=== PATIENT | female | born 1945 | race Caucasian/White ===

== ENCOUNTER → 2016-10-15 | Outpatient (CLI) | payer MEDICARE, BC ==
[2012-01-02 12:58] VITALS: BP 164/78
[~2016-10-15] MED LIST: ALPRAZOLAM0.25 MG PO; CITALOPRAM20 MG PO; LEVOTHYROXINE; PREMARIN0.3 MG; SIMVASTATIN5 MG PO
== END ==
LOC: MAMMO 13:53
DX: R92.8 Other abnormal and inconclusive findings on diagnostic imaging of breast (principal)

== ENCOUNTER → 2017-05-13 | Outpatient (CLI) | payer MEDICARE, BC ==
[2012-01-02 12:58] VITALS: BP 164/78
== END ==
LOC: MAMMO 08:29 → RAD 08:30
DX: Z12.31 Encounter for screening mammogram for malignant neoplasm of breast (principal)

== ENCOUNTER → 2017-08-03 | Outpatient (CLI) | payer MEDICARE, BC ==
[2012-01-02 12:58] VITALS: BP 164/78
== END ==
LOC: RAD 07-07 14:30 → MAMMO 07-07 14:30 → RAD 13:40
DX: Z13.820 Encounter for screening for osteoporosis (principal)

== ENCOUNTER → 2018-07-19 | Outpatient (CLI) | payer MEDICARE, BC ==
[2012-01-02 12:58] VITALS: BP 164/78
== END ==
LOC: MAMMO 11:16
DX: Z12.31 Encounter for screening mammogram for malignant neoplasm of breast (principal)

== ENCOUNTER 2021-03-14 09:16 | Emergency (ER) | payer MEDICARE, BC ==
[2021-03-14] MEDS ORDERED: PANTOPRAZOLE SO40 MG PO (09:30)
[2021-03-14] MEDS ORDERED: ALPRAZOLAM0.5 MG PO (09:30)
[2021-03-14] MEDS ORDERED: SINGULAIR 110 MG/TAB PO (09:30)
[2021-03-14] MEDS ORDERED: ESTRADIOL0.5 M1 PO (09:30)
[2021-03-14] MEDS ORDERED: LEVOTHYROXINE125 MCG PO (09:30)
[2021-03-14] MEDS ORDERED: PREDNISONE20 M1 PO (10:31)
[2021-03-14] MEDS ORDERED: MORGIDOX 1X100100 MG PO (10:31)
[2021-03-14 10:46] VITALS: BP 154/76
[2021-03-14 11:46] LABS: URINE APPEARANCE CLEAR; URINE BILIRUBIN NEGATIVE (NEGATIVE); URINE BLOOD TRACE (NEGATIVE); URINE COLOR YELLOW; URINE GLUCOSE NEGATIVE (NEGATIVE); URINE KETONE NEGATIVE (NEGATIVE); URINE LEUKOCYTE ESTERASE NEGATIVE (NEGATIVE); URINE NITRATE NEGATIVE (NEGATIVE); URINE PROTEIN(semi-quant) 3+ (NEGATIVE); URINE UROBILINOGEN NORMAL (NORMAL); URINE WBC 0-1 /hpf (0-3)
== END 2021-03-14 10:46 | disposition home or self-care (01) ==
LOC: ED 09:16
PROVIDERS: Physician Assistant
DX: J40 Bronchitis, not specified as acute or chronic (principal); J32.9 Chronic sinusitis, unspecified; J44.9 Chronic obstructive pulmonary disease, unspecified; E03.9 Hypothyroidism, unspecified; K21.9 Gastro-esophageal reflux disease without esophagitis; Z20.822 Contact with and (suspected) exposure to COVID-19; Z79.890 Hormone replacement therapy; Z79.899 Other long term (current) drug therapy

== ENCOUNTER → 2021-06-02 | Outpatient (CLI) | payer MEDICARE, BC ==
[~2021-06-02] MED LIST changes: +ALPRAZOLAM0.5 MG PO; +ESTRADIOL0.5 M1 PO; +LEVOTHYROXINE125 MCG PO; +MORGIDOX 1X100100 MG PO; +PANTOPRAZOLE SO40 MG PO; +PREDNISONE20 M1 PO; +SINGULAIR 110 MG/TAB PO
[2021-06-02 12:48] LABS: POTASSIUM 4.2 mmol/L (3.5-5.1)
[2021-06-02 12:49] LABS: CALCIUM 9.2 mg/dL (8.3-10.5)
== END ==
LOC: RAD 10:11
PROVIDERS: Nurse Practitioner Family
DX: G93.0 Cerebral cysts (principal); E03.9 Hypothyroidism, unspecified
CPT/HCPCS: A9585

== ENCOUNTER → 2022-01-14 | Outpatient (CLI) | payer MEDICARE, BC | LOC: LAB 16:22 | DX: E03.9 Hypothyroidism, unspecified (principal) ==

== ENCOUNTER 2022-05-14 09:31 | Outpatient (RCR) | payer MEDICARE, BC | END 2022-06-14 21:24 | disposition home or self-care (01) | LOC: OPPGERO 09:31 | DX: F32.9 Major depressive disorder, single episode, unspecified (principal); F41.9 Anxiety disorder, unspecified; J45.909 Unspecified asthma, uncomplicated; I10 Essential (primary) hypertension; E78.5 Hyperlipidemia, unspecified; E03.9 Hypothyroidism, unspecified ==